=== PATIENT | female | born 1980 | race African-American/Black ===

== ENCOUNTER 2021-10-16 07:38 | Inpatient (IN) | payer MEDICAID ==
[~2021-10-16] VITALS: Ht 157.5 cm; Wt 120.7 kg
[~2021-10-16 07:38] MED LIST: PREN-88 PO
[2021-10-16] MEDS ORDERED: CITRIC ACID/SODIUM CITRATE SOLN 30ML UDC PO SCH (08:00)
[2021-10-16] MEDS ORDERED: FENTANYL CITRATE/PF 50MCG/ML 2ML VIAL ONE (08:11)
[2021-10-16] MEDS ORDERED: MORPHINE SULFATE/PF 1MG/ML 10ML AMP ONE (08:12)
[2021-10-16] MEDS ORDERED: ONDANSETRON HCL 4MG/2ML INJ ONE (08:12)
[2021-10-16] MEDS ORDERED: PHENYLEPHRINE HCL 10 MG/ML 1ML (IV VIAL) IV ONE (08:12)
[2021-10-16] MEDS ORDERED: EPHEDRINE SULFATE 50MG/ML VIAL ONE (08:12)
[2021-10-16] MEDS ORDERED: DIPHENHYDRAMINE 50MG/ML VIAL ONE (08:13)
[2021-10-16] MEDS ORDERED: CEFAZOLIN SODIUM 1000MG/VIAL ONE (08:13)
[2021-10-16] MEDS ORDERED: OXYTOCIN 10 UNITS/ML 1ML ONE ×2 (08:13→12:25)
[2021-10-16] MEDS ORDERED: MISOPROSTOL 100MCG TABLET VG PRN (08:30)
[2021-10-16] MEDS ORDERED: NALOXONE HCL 0.4 MG/ML 1ML VIAL IM PRN (08:30)
[2021-10-16] MEDS ORDERED: METHYLERGONOVINE MALEATE 0.2 MG/ML IM PRN (08:30)
[2021-10-16] MEDS ORDERED: CARBOPROST TROMETHAMINE 250 MCG/ML AMPUL IM PRN (08:30)
[2021-10-16 08:40] LABS: BASOPHILS % 0.3 % (0.0-2.0); EOSINOPHILS % 1.3 % (0.0-5.0); HEMATOCRIT. 35.3 % (36.0-48.0); HEMOGLOBIN. 11.8 g/dL (12.0-16.0); LYMPHOCYTES % 24.2 % (20.0-50.0); MEAN CORPUSCULAR HEMOGLOBIN 28.1 pg (28.0-32.0); MEAN CORPUSCULAR VOLUME 84.4 fL (81.0-99.0); MEAN PLATELET VOLUME 7.6 fl (7.4-10.4); MONOCYTES % 7.3 % (2.0-8.0); NEUTROPHILS % 66.9 % (40.0-76.0); PLATELET 407 x1000/uL (130-400); RED BLOOD CELL COUNT 4.19 mill/uL (4.2-5.4); RED CELL DISTRIBUTION WIDTH 13.5 % (11.6-14.6)
[2021-10-16] MEDS: LACTATED RINGERS 1,000 ML IV SCH ×2 (08:43→09:19)
[2021-10-16 09:01] LABS: CLARITY URINE TURBID (CLEAR); COLOR URINE YELLOW (YELLOW); KETONES URINE TRACE (NEGATIVE); LEUKOCYTE ESTERASE URINE 3+ (NEGATIVE); NITRITE URINE NEGATIVE (NEGATIVE); OCCULT BLOOD URINE 2+ (NEGATIVE); PH URINE 5.5 (4.5-8.0); PROTEIN URINE 1+ (NEGATIVE); SPECIFIC GRAVITY URINE 1.023 (1.005-1.030)
[2021-10-16 09:07] LABS: *AMPHETAMINES SCREEN URINE NEGATIVE (NEGATIVE); *BARBITURATES SCREEN URINE NEGATIVE (NEGATIVE); *BENZODIAZEPINES SCREEN URINE NEGATIVE (NEGATIVE); *COCAINE SCREEN URINE NEGATIVE (NEGATIVE); CANNABINOID URINE SCREEN NEGATIVE (NEGATIVE); METHADONE URINE SCREEN NEGATIVE (NEGATIVE); OPIATES URINE SCREEN NEGATIVE (NEGATIVE); PHENCYCLIDINE URINE SCREEN NEGATIVE (NEGATIVE)
[2021-10-16 09:40] LABS: HEPATITIS B SURFACE ANTIGEN NEGATIVE
[2021-10-16 10:44] LABS: INR 0.9; PARTIAL THROMBOPLASTIN TIME 27.1 sec (23.4-31.0); PROTHROMBIN TIME 10.1 sec (9.6-11.0)
[2021-10-16] MEDS ORDERED: KETOROLAC 60MG/2ML VIAL IM ONE (11:40)
[2021-10-16] MEDS ORDERED: BUTORPHANOL TARTRATE 2 MG/ML VIAL IV PRN (11:45)
[2021-10-16] MEDS ORDERED: NALOXONE HCL 0.4 MG/ML 1ML VIAL IV PRN (11:45)
[2021-10-16] MEDS ORDERED: DIPHENHYDRAMINE 50MG/ML VIAL IV PRN (11:45)
[2021-10-16] MEDS ORDERED: ONDANSETRON HCL 4MG/2ML INJ IV PRN (13:00)
[2021-10-16] MEDS ORDERED: RHO(D) IMMUNE GLOBULIN 300 MCG/SYR IM PRN (13:00)
[2021-10-16] MEDS ORDERED: BISACODYL 10MG SUPP PR PRN (13:00)
[2021-10-16] MEDS ORDERED: HYDROCODONE/ACETAMINOPHEN 5/325MG TABLET PO PRN (13:00)
[2021-10-16] MEDS ORDERED: LANOLIN OINT 7GM TUBE TOP PRN (13:00)
[2021-10-16] MEDS ORDERED: OXYTOCIN 30 UNITS/500ML NS PMX 500 ML IV SCH (13:30)
[2021-10-16 15:00] VITALS: BP 109/58
[2021-10-16 15:20] VITALS: BP 121/73
[2021-10-16 16:40] VITALS: BP 126/72
[2021-10-16] MEDS: KETOROLAC 30MG/ML VIAL IV SCH (17:55)
[2021-10-16] MEDS ORDERED: TETANUS, DIPHTHERIA, PERTUSSIS VAC/PF 0.5ML (>10YR OLD) IM ONE (18:45)
[2021-10-16 20:00] VITALS: BP 130/88
[2021-10-16] MEDS: DOCUSATE SODIUM 100MG CAPSULE PO SCH (20:08)
[2021-10-17] VITALS: BP 129/84
[2021-10-17] MEDS: KETOROLAC 30MG/ML VIAL IV SCH (00:07)
[2021-10-17] MEDS: LACTATED RINGERS 1,000 ML IV SCH (00:11)
[2021-10-17 04:00] VITALS: BP 111/74
[2021-10-17 06:58] LABS: BASOPHILS % 0.5 % (0.0-2.0); EOSINOPHILS % 1.3 % (0.0-5.0); HEMATOCRIT. 32.5 % (36.0-48.0); HEMOGLOBIN. 10.7 g/dL (12.0-16.0); LYMPHOCYTES % 19.6 % (20.0-50.0); MEAN CORPUSCULAR HEMOGLOBIN 28.7 pg (28.0-32.0); MEAN CORPUSCULAR VOLUME 86.9 fL (81.0-99.0); MEAN PLATELET VOLUME 7.4 fl (7.4-10.4); NEUTROPHILS % 71.6 % (40.0-76.0); PLATELET 350 x1000/uL (130-400); RED BLOOD CELL COUNT 3.74 mill/uL (4.2-5.4); RED CELL DISTRIBUTION WIDTH 13.5 % (11.6-14.6)
[2021-10-17 08:00] VITALS: BP 127/64
[2021-10-17] MEDS: PRENATAL VIT/FE FUMARATE/FA TABLET PO SCH (09:00)
[2021-10-17] MEDS: HYDROCODONE/ACETAMINOPHEN 5/325MG TABLET PO PRN ×2 (11:49→19:59)
[2021-10-17 16:00] VITALS: BP 134/79
[2021-10-17] MEDS: IBUPROFEN 400MG TABLET PO PRN (16:55)
[2021-10-17] MEDS: DOCUSATE SODIUM 100MG CAPSULE PO SCH (19:59)
[2021-10-17 20:00] VITALS: BP 105/60
[2021-10-18] MEDS: HYDROCODONE/ACETAMINOPHEN 5/325MG TABLET PO PRN ×5 (01:39→23:13)
[2021-10-18 04:06] VITALS: BP 135/78
[2021-10-18 08:00] VITALS: BP 139/87
[2021-10-18] MEDS: PRENATAL VIT/FE FUMARATE/FA TABLET PO SCH (10:07)
[2021-10-18 16:00] VITALS: BP 135/77
[2021-10-18 20:00] VITALS: BP 110/53
[2021-10-18] MEDS: DOCUSATE SODIUM 100MG CAPSULE PO SCH (21:00)
[2021-10-19] MEDS: HYDROCODONE/ACETAMINOPHEN 5/325MG TABLET PO PRN (03:04)
[2021-10-19 04:00] VITALS: BP 109/73
[2021-10-19 08:00] VITALS: BP 137/87
[2021-10-19] MEDS: PRENATAL VIT/FE FUMARATE/FA TABLET PO SCH (08:43)
[2021-10-19 08:44] VITALS: BP 137/87
[2021-10-19] MEDS: IBUPROFEN 400MG TABLET PO PRN (08:44)
[2021-10-19] MEDS ORDERED: IBUP-2030 MT (10:24)
== END 2021-10-19 11:25 | disposition home or self-care (01) | DRG 539 ==
LOC: 8 EST LDRP 07:38 → OBSVTOIN 07:39 → 8EST 14:50
PROVIDERS: ADMIT Obstetrics & Gynecology; ATTEND Obstetrics & Gynecology
PROC: 10D00Z1 Extraction of Products of Conception, Low, Open Approach (ICD-10-PCS; principal; 2021-10-16)
PROC: 0UB70ZZ Excision of Bilateral Fallopian Tubes, Open Approach (ICD-10-PCS; 2021-10-16)
DX: O34.211 Maternal care for low transverse scar from previous cesarean delivery (principal); D62 Acute posthemorrhagic anemia; O99.02 Anemia complicating childbirth; Z30.2 Encounter for sterilization; Z37.0 Single live birth; Z20.822 Contact with and (suspected) exposure to COVID-19; Z3A.39 39 weeks gestation of pregnancy
CPT/HCPCS: 36415; 80305; 81003; 85025; 86592; 86703; 86762; 86850; 86900; 87340; 87426; 88302; 88307; 90715; G0378; J0690; J1200; J1885; J2274; J2370; J2405; J3010; J3490; J7120; J2590